=== PATIENT | female | born 1970 | race Caucasian/White ===

== ENCOUNTER 2017-11-30 08:34 | Emergency (ER) | payer MEDICARE, MEDICAID ==
[~2017-11-30] VITALS: Ht 177.8 cm; Wt 88.6 kg
[~2017-11-30 08:34] MED LIST: HYDR-565 PO; LORA1TAB PO; PANT40TA39 PO; PROM25TA14 PO
[2017-11-30 09:41] VITALS: BP 122/93
[2017-11-30] MEDS ORDERED: HYDROcodone/acetaminophen 5mg/325mg tablet PO ONE (10:00)
[2017-11-30] MEDS ORDERED: ibuprofen tablet 400 MG TABLET PO ONE (10:00)
[2017-11-30] MEDS ORDERED: HYDR-3965 PO (10:02)
== END 2017-11-30 10:12 | disposition home or self-care (01) ==
LOC: ER 08:35
DX: M25.512 Pain in left shoulder (principal); G89.29 Other chronic pain; G43.909 Migraine, unspecified, not intractable, without status migrainosus; Z90.710 Acquired absence of both cervix and uterus; Z90.49 Acquired absence of other specified parts of digestive tract; Z98.890 Other specified postprocedural states; Z56.0 Unemployment, unspecified; Z79.899 Other long term (current) drug therapy
CPT/HCPCS: 73030; 99284; A4565

== ENCOUNTER 2018-02-15 13:16 | Emergency (ER) | payer MEDICARE, MEDICAID ==
[~2018-02-15] VITALS: Ht 170.2 cm; Wt 90.9 kg
[2018-02-15 14:39] LABS: URINE HCG NEGATIVE (NEG)
[2018-02-15 14:42] LABS: CLARITY,URINE SLIGHTLY CLOUDY (Clear); COLOR,URINE YELLOW (Yellow); GLUCOSE, URINE NEGATIVE (Neg); KETONES,URINE NEGATIVE (Neg); LEUKOCYTE ESTERASE ,URINE SMALL (Neg); NITRITES, URINE NEGATIVE (Neg); OCCULT BLOOD,URINE MODERATE (Neg); PH,URINE 6.5 (4.8-8.0); PROTEIN,URINE NEGATIVE (Neg); UROBILINOGEN,URINE 0.2 E.U/dL (0.2-1.0)
[2018-02-15 14:43] LABS: UA COLLECTION TYPE CLN CATCH MIDSTREAM
[2018-02-15 15:05] VITALS: BP 128/77
[2018-02-15 15:53] LABS: BACTERIA,URINE FEW /HPF (Neg); MUCUS STRANDS MODERATE /LPF (Neg); SQUAMOUS EPITHELIAL CELL,UR FEW /LPF (FEW)
[2018-02-15 15:54] LABS: WBC,URINE 50-100 /HPF (0-4)
== END 2018-02-15 15:08 | disposition home or self-care (01) ==
LOC: ER 13:17
DX: N81.10 Cystocele, unspecified (principal); N93.8 Other specified abnormal uterine and vaginal bleeding; G43.909 Migraine, unspecified, not intractable, without status migrainosus; K57.90 Diverticulosis of intestine, part unspecified, without perforation or abscess without bleeding; G89.29 Other chronic pain; M54.9 Dorsalgia, unspecified; Z90.710 Acquired absence of both cervix and uterus; Z90.49 Acquired absence of other specified parts of digestive tract; Z56.0 Unemployment, unspecified
CPT/HCPCS: 81001; 81025; 87088; 99284

== ENCOUNTER 2019-12-30 09:18 | Emergency (ER) | payer MEDICAID ==
[~2019-12-30] VITALS: Ht 175.3 cm; Wt 95.0 kg
[~2019-12-30 09:18] MED LIST changes: +HYDR-4353 PO; -HYDR-565 PO
[2019-12-30 09:20] VITALS: BP 143/93
--- NOTE | 2019-12-30 09:26 | NUR ---
PATIENT STATES SHE PUNCHED A DOOR PRIOR TO COMING TO ER AND NOW HAS NUMBNESS TO RIGHT WRIST AND HAND. NO DEFORMITY NOTED TO AREA. AMBULATORY TO XRAY DEPARTMENT WITH XR TECH.
== END 2019-12-30 10:10 | disposition left against medical advice (07) ==
LOC: ER 09:18
DX: M79.641 Pain in right hand (principal); Z53.21 Procedure and treatment not carried out due to patient leaving prior to being seen by health care provider; W22.09XA Striking against other stationary object, initial encounter; Y93.89 Activity, other specified; Y92.89 Other specified places as the place of occurrence of the external cause; Y99.8 Other external cause status
CPT/HCPCS: 73130; 99283